=== PATIENT | female | born 1955 | race Caucasian/White ===

== ENCOUNTER 2017-11-09 15:59 | Emergency (ER) | payer MEDICARE, OTHER ==
[~2017-11-09] VITALS: Ht 157.5 cm; Wt 65.8 kg
[2017-11-09] MEDS ORDERED: MIRALAX17 GM PO (16:51)
[2017-11-09] MEDS ORDERED: TRAZODONE HCL100 MG PO (16:54)
[2017-11-09] MEDS ORDERED: DICYCLOMINE HCL10 MG PO (16:58)
[2017-11-09] MEDS ORDERED: ZOFRAN ODT4 MG PO ×2 (16:59→18:51)
== END 2017-11-09 19:10 | disposition home or self-care (01) ==
LOC: ED 15:59
PROC: 0T9B70Z Drainage of Bladder with Drainage Device, Via Natural or Artificial Opening (ICD-10-PCS; principal; 2017-11-09)
DX: K52.9 Noninfective gastroenteritis and colitis, unspecified (principal); Z88.8 Allergy status to other drugs, medicaments and biological substances; Z79.899 Other long term (current) drug therapy
CPT/HCPCS: 51701; 74176; 80053; 81001; 83690; 85025; 96361; 96374; 96375; 99284; J1170; J1885; J2405; J7120

== ENCOUNTER 2017-12-09 07:21 | Emergency (ER) | payer MEDICARE, OTHER ==
[~2017-12-09] VITALS: Ht 160 cm; Wt 63.0 kg
[~2017-12-09 07:21] MED LIST: DICYCLOMINE HCL10 MG PO; MIRALAX17 GM PO; TRAZODONE HCL100 MG PO; ZOFRAN ODT4 MG PO
[2017-12-09] MEDS ORDERED: FUROSEMIDE40 MG PO (07:42)
[2017-12-09] MEDS ORDERED: OMEPRAZOLE20 MG PO (07:43)
[2017-12-09] MEDS ORDERED: SERTRALINE HCL100 MG PO (07:43)
[2017-12-09] MEDS ORDERED: VENTOLIN HFA18 GM INH (07:43)
[2017-12-09] MEDS ORDERED: LOSARTAN POTASS50 MG PO (07:43)
[2017-12-09] MEDS ORDERED: ADVAIR 100-501 EACH INH (07:43)
[2017-12-09] MEDS ORDERED: OXCARBAZEPINE300 MG PO (07:43)
== END 2017-12-09 07:55 | disposition home or self-care (01) ==
LOC: ED 07:21
DX: M25.552 Pain in left hip (principal)

== ENCOUNTER 2018-10-30 13:02 | Inpatient (IN) | payer MEDICARE, OTHER ==
[~2018-10-30] VITALS: Ht 157.5 cm; Wt 71.5 kg
[~2018-10-30 13:02] MED LIST changes: +ADVAIR 100-501 EACH INH; +AMITRIPTYLINE150 MG PO; +AMLODIPINE BESYL5 MG PO; +CALCIUM 1,0001 EACH PO; +COZAAR100 MG PO; +FUROSEMIDE40 MG PO; +HYDROXYZINE PAM50 MG PO; +IBUPROFEN600 MG PO; +IMFINZI120 MG/2.4; +LIPITOR20 MG PO; +LORAZEPAM1 MG PO; +MAGNESIUM400 MG PO; +MAPAP325 MG PO; +MULTI VITAMIN1 EACH PO; +OMEPRAZOLE20 MG PO; +OXCARBAZEPINE300 MG PO; +OXYCODONE HCL5 MG PO; +SERTRALINE HCL100 MG PO; +SYMBICORT 16010.2 GM INH; +VENTOLIN HFA18 GM; +VENTOLIN HFA18 GM INH
--- OUTSIDE RECORDS SUMMARY | 2018-10-30 13:04 | XMS ---
PreManage Notification: MARY MURRY Security Psychologist [employer] Personnel Events No recent Security Events currently on file CRITERIA MET - PDM CARE PROVIDERS Wayne Shultz Internal Medicine: Pulmonary Disease 12/10/2017-Current PHONE: Unknown [facility] Current PHONE: Unknown Grace has no Care Guidelines for this patient. Chele VISIT COUNT (12 MO.) 1 Elissa Ardon TOTAL 4 NOTE: Visits indicate total known visits. ED/UCC VISIT TRACKING (12 MO.) 10/30/2018 13:[address] [facility] TYPE: Emergency COMPLAINT: - [facility] DIAGNOSES: - Neoplasm related pain (acute) (chronic) - Other malaise - Urinary tract infection, site not specified - Unspecified fall, initial encounter - Hypo-osmolality and hyponatremia - Hypomagnesemia - Fracture of unspecified part of neck of right femur, initial encounter for closed fracture - Fall/Right Hip - Other fatigue - Multiple Falls 12/09/2017 07:22 [facility] [place] TYPE: Emergency COMPLAINT: - L HIP PAIN/FALL/MSE TO CLINIC DIAGNOSES: - Pain in left hip 11/09/2017 16:00 [facility] [place] TYPE: Emergency COMPLAINT: - ABD PAIN/FLANK PAIN DIAGNOSES: - Unspecified abdominal pain - Noninfective gastroenteritis and colitis, unspecified - Other fci (current) drug therapy - Allergy status to other drugs, medicaments and biological substances status INPATIENT VISIT TRACKING (12 MO.) 03/28/2018 12:31 [facility] [place] TYPE: Surgical Services DIAGNOSES: - Urinary tract infection, site not specified - Essential (primary) hypertension - Hypomagnesemia - Malignant neoplasm of lower lobe, left bronchus or lung - Neoplasm related pain (acute) (chronic) - Repeated falls - Acute respiratory failure with hypoxia - Unspecified fall, initial encounter - Hypo-osmolality and hyponatremia - Fracture of unspecified part of neck of right femur, initial encounter for closed fracture - Other malaise - Other fatigue - Chronic obstructive pulmonary disease, unspecified [email or web address]
--- NOTE | 2018-10-30 19:10 | NUR ---
PT ARRIVES TO MED SURG FLOOR VIA STRETHCER. PT DROWSY, DOZES OFF WHEN ANSWERING QUESTIONS. ORIENTATION TO ROOM PROVIDED. STARKS CATHETER DRAINING. PORT ACCESSED BY ELOY ARCHER. CONT. PULSE OXIMETER IN PLACE ORDERED, 2L OXYGEN BY NC APPLIED, SATURATIONS WNL. MD IN ROOM. PERSONAL SUPPLIES, CALL LIGHT AND DINNER IN REACH.
--- NOTE | 2018-10-30 19:15 | NUR ---
RECEIVED SHIFT REPORT FROM DAYSHIFT ELOY LANIER AT [facility]. VS BEING TAKEN FROM ALTERATION WORKROOM SUPERVISOR TRAINING AND DEVELOPMENT MANAGER. PT APPEARS DROWSY, CPOX IN PLACE. 2LNC ALSO IN PLACE. O2 SAT AND HR WNL. PT APPEARS COMFORTABLE, DENIES IMMEDIATE NEEDS AT THIS TIME. CALL LIGHT IN REACH.
--- NOTE | 2018-10-30 19:43 | NUR ---
THIS RN ASSISTING WITH PT ADMIT. PT ORIENTED TO ROOM. PT ARRIVED TO FLOOR WITH PORT ALREADY ACCESSED. PORT ASSESSED, DRESSING LOOSE, BRISK BLOOD RETURN NOTED. LABS DRAWN FROM PORT. DRESSING CHANGED PER PROTOCOL. PT DESTATS TO 80% ON ROOM AIR. PT STARTED ON CONTINIOUS PULSE OX, PT PLACED ON 2L O2 BY NC. SCHAFFER AT BEDSIDE FOR ASSESSMENT. BED RAILS UP. CALL LIGHT WITHIN REACH.
--- NOTE | 2018-10-30 19:59 | NUR ---
WITH THE HELP OF ELOY ARCHER WE REPOSITIONED PT IN BED TO HER COMFORT. HELPED HER WITH HER FOOD. PT WILL CALL IF SHE NEEDS ANYTHING ELSE.
--- NOTE | 2018-10-30 20:45 | NUR ---
ASSESSMENT COMPLETE, VSS. CPOX IN PLACE, PT ON 2LNC. PT REPORTS 10/10 PAIN, FACIAL GRIMACING NOTED. SCHEDULED TYLENOL ADMINISTERED, LIDOCAINE PATCH APPLIED. SCHEDULED MEDICATIONS GIVEN (SEE EMAR). PORT DRESSING TO RIGHT INTACT, BLOOD RETURN NOTED. SALINE LOCKED AT THIS TIME. PT A/O TO NAME AND , FORGETFUL REGARDING PLACE AND DATE. WILL MONITOR. PT DENIES ADDITIONAL NEEDS, CALL LIGHT IN REACH.
--- NOTE | 2018-10-30 22:10 | NUR ---
ELOY NICOLE IN ROOM TO COLLECT SCHEDULED BLOOD DRAW, PT HEP LCOKED PER ELOY NICOLE AFTER DRAW.
--- NOTE | 2018-10-30 22:31 | NUR ---
Patient reports 8/10 pain in lower back, states that this pain is normal for her. 5 mg PO oxycodone given for pain. Patient denies further needs at this time. Call light within reach.
--- NOTE | 2018-10-30 23:40 | NUR ---
PT CONTINUES TO REPORT OF PAIN IN BACK. PT REPORTS PAIN IS 5-6/10. FACIAL GRIMACING NOTED WITH CRYING. PT REMAINS DROWSY. O2 SAT 94% ON 2LNC, RR 19. HR 80'S. DISCUSSED PAIN INTERVENTIONS WITH RUBBER TUBING BACKER, PRN 5MG OXYCODONE ADMINISTERED. IV MAINTENANCE FLUIDS INFUSING AT 50 MLS/HR, BLOOD RETURN NOTED WHEN PORT ACCESSED BY THIS RN. WARM BLANKET PROVIDED, LIGHTS OFF PER PT REQUEST. CALL LIGHT IN REACH.
--- NOTE | 2018-10-31 02:50 | NUR ---
VITALS AND I&OS DONE AND CHARTED. GOT PT A HEAT PACK FOR HER BACK. SCRATCHED HER BACK PER HER REQUEST. FRESH ICE WATER GIVEN. BEDSIDE TABLE AND CALL LIGHT WITHIN REACH. PT ASKED FOR PAIN MEDS. I INFORMED HER RN DEEPA .
--- NOTE | 2018-10-31 03:09 | NUR ---
ASSESSMENT COMPLETE, NO NEW CONCERNS. PT A/O TO SELF, PLACE, AND SOMEWHAT TO EVENTS PRIOR TO HOSPITALIZATION. PT STATES, "I THINK I'M STARTING TO REMEMBER HOW I FELL". LOWER BACK ASSESSED BY THIS RN PER PT REQUEST. PT STATES, "CAN YOU FEEL MY BACK, WHERE I FELL?". NO OBVIOUS DEFORMITIES NOTED, WILL MONITOR AND NOTIFY DAYSHIFT RN AT REPORT. PT REPORTS 6-7/10 PAIN IN BACK, WILL ADMINISTER PRN OXYCODONE WHEN ABLE (SEE EMAR). PT VERBALIZES AGREEMENT. LIDOCAINE PATCH FOUND IN BED, DISPOSED OF PER FACILITY POLICY. IV FLUIDS INFUSING PER MD ORDERS, PORT ACCESS WNL. DRESSING INTACT. NO FURTHER NEEDS, CALL LIGHT IN REACH.
--- NOTE | 2018-10-31 03:47 | NUR ---
10 mg prn oxycodone administered for 6-710 pain in pt's lower back. warm blanket provided per pt request. no further needs, call light in reach.
--- NOTE | 2018-10-31 04:48 | NUR ---
PT FORGETFUL AT TIMES, A/O TO SELF, PLACE, AND SOMEWHAT TO EVENTS. KNOWS LIMITATIONS AND USES CALL LIGHT APPROPERIATELY. PAIN CONTROLLED WITH PO OXYCODONE AND LIDOCAINE PATCH. PORT TO RIGHT CHEST ACCESSED, IV FLUIDS INFUSING, BLOOD RETURN NOTED. REGULAR DIET, TOLERATING WELL, NO NAUSEA THIS SHIFT. STARKS CATHETER IN PLACE, VOIDING QS. NO BM THIS SHIFT.
--- NOTE | 2018-10-31 06:08 | NUR ---
PATIENT USED THE CALL LIGHT TO LEFT STAFF NOW SHE WAS NAUSEATED AND GOING TO VOMIT. THIS NURSE GAVE 4MG IV ZOFRAN TO THE PATIENT AND NAUSEA HAS SUBSIDED FOR THE TIME BEING.
--- NOTE | 2018-10-31 06:30 | NUR ---
BLOOD DRAW COMPLETE, NEW CLAVE IN PLACE. IV FLUIDS INFUSING PER MD ORDERS, IV SITE WNL. BREAKFAST ORDERED, NO NEW ORDERS. CALL LIGHT IN REACH.
--- NOTE | 2018-10-31 07:30 | NUR ---
BEDSIDE REPORT RECEIVED FROM ELOY MARTIN. PT RESTING SUPINE, CALL LIGHT AND H2O IN REACH. PT REPORTS INCREASED BACK PAIN AND REQUESTS PRN OPIOD -SEE EMAR. CALL LIGHT AND H2O IN REACH. PT DENIES NUMBNESS,TINGLING OR BURNING TO BILAT LE'S. FAMILY AT BEDSIDE. NO FURHTER CONCERNS OR REQUESTS VOICED.
--- NOTE | 2018-10-31 09:28 | NUR ---
PT RESTING SUPINE IN BED WATCHING TV. PT ASSESSMENT COMPLETED, VSS, AND AM MEDS ADMINISTERED. CALLL LIGHT AND H20 IN REACH. PT REPORTS BACK PAIN BUT STATES IT IS TOLERABLE AND WILL WAIT FOR TYLENOL TO TAKE AFFECT. ICE PACK PROVIDED PER DWIGHT MURILLO ALONG WITH FRESH ICE WATER. PT DENIES FURTHER NEEDS/CONCERNS.
--- NOTE | 2018-10-31 10:00 | NUR ---
PT RESTING IN BED AND IS TEARFUL WITH FACIAL GRIMMACE NOTED. PT REPORTS PERSISTING 7/10 BACK PAIN SO PRN IV OPIOD ADMINISTERED PER HER REQUEST. CALL LIGHT AND H2O IN REACH. PT DENIES FURTHER NEEDS/CONCERNS.
--- NOTE | 2018-10-31 11:22 | NUR ---
PT RESTING IN FOWLERS POSITION IN BED, APPEARS TO BE IN NO ACUTE DISTRESS ADN IS SATTING AT 94% ON 2LPNC. FRESH ICE WATER PROVIDED PER PT REQUEST. NO FURTHER NEEDS/CONCERNS VOICED.
--- NOTE | 2018-10-31 12:16 | NUR ---
PT SITTING UP IN BED, GLOBAL LOGISTICS MANAGER IN TAKING VS. PT NAUSEOUS, USED VOID BAG WHILE I WAS IN RM. SHE APOLOGIZED AND MENTIONED THAT SHE FELT LIKE SHE IS FEVERISH. HAD PRAYER WITH PT AND GAVE HER A P.SHAWL. WILL CONTINUE TO FOLLOW NEEDED
--- NOTE | 2018-10-31 12:26 | NUR ---
BROUGHT IN A SHAMPOO CAP AND WASHED HER HAIR.
--- NOTE | 2018-10-31 13:46 | NUR ---
PT RESTING SUPINE IN BED USING CELL PHONE. PT ASSESSMENT COMPLETED. PT TOLERATED 75% OF LUNCH AND REPORTS PAIN IS NOW TOLERABLE. CALL LIGHT AND H20 IN REACH. PT REQUESTS THAT WALKER BE PLACED NEXT TO BED SO IT WAS. PT AGREES TO USE CALL LIGHT BEFORE GETTING UP FOR SAFETY. NO FURTHER NEEDS/CONCERNS VOICED.
--- NOTE | 2018-10-31 15:01 | NUR ---
CALL LIGHT ANSWERED. PATIENT ASKS FOR AMBULATION. PATIENT RESTING IN BED. PATIENT AMBULATING IN ROOM. PATIENT USES A GATE BELT AND WALKER. ONE PERSON ASSISTING. PATIENT BACKS TO BED.
--- NOTE | 2018-10-31 15:35 | NUR ---
PT RESTING SUPINE IN BED, PT REPORTS PAIN OF 8/10 AND IS TEARFUL AT TIMES. DR ANN IN ROOM DISCUSSING POC WITH PATIENT. PRN PO OPIODS ADMINISTERED. FRESH ICE WATER AND SEPERATE CUP OF ICE PROVIDED TO PT PER HER REQUEST. CALL LIGHT AND H20 IN REACH. PT WATCHING TV AND DENIES FURTHER NEEDS/CONCERNS.
--- NOTE | 2018-10-31 16:42 | NUR ---
CALL LIGHT ANSWERED. PATIENT RESTING IN BED. IN ROOM. PATIENT ASKS FOR PAIN MEDICATION. RN NOTIFIED. CALL LIGHT WITHIN REACH. NO OTHER NEEDS AT THIS TIME
--- NOTE | 2018-10-31 17:26 | NUR ---
PATIENT SITTING UP IN BED. IN ROOM. VITAL SIGNS AND I&O DONE. SETS UP TABLE FOR DINNER. CALL LIGHT WITHIN REACH. NO OTHER NEEDS AT THIS TIME
--- NOTE | 2018-10-31 19:00 | NUR ---
SHIFT REPORT RECEIVED FROM DAYSHIFT ELOY LANIER AT BEDSIDE. PT AWAKE AND RESTING IN BED, 2LNC IN PLACE. O2 SAT 93%, HR 92. IV ABX COMPLETE, PT HEP LOCKED BY YOLANDE LYONS. INTRODUCED SELF TO PT, BOARD UPDATED. CALL LIGHT IN REACH.
--- NOTE | 2018-10-31 19:48 | NUR ---
PT REPORTS 7-8/10 PAIN, 2 5MG PRN OXYCODONES ADMINISTERED. PT ON 2LNC, O2 SAT 94%, HR 90. NO FURTHER NEEDS, CALL LIGHT IN REACH.
--- NOTE | 2018-10-31 21:14 | NUR ---
CHARGE NURSE ROUNDING NOTE:. REPOSITIONED IN BED, O2 BACK TO NARES SHE TAKES IT OFF. COOP WITH VITALS. FRESH ICE WATER AND SODA GIVEN ON REQUEST. FLUIDS AND CALL LIGHT AT BEDSIDE
--- NOTE | 2018-10-31 21:30 | NUR ---
ASSESSMENT COMPLETE. SCHEDULED MEDICATIONS GIVEN (SEE EMAR). VS RECENTLY COLLECTED BY NANCY LYONS. PT ON 2LNC, MACIEL IN PLACE. O2 SAT AND HR WNL. PT VERY EMOTIONAL DURING ASSESSMENT WITH INTERMITTENT CRYING. PT REPORTS 8/10 PAIN, INITIALLY REFUSES LIDOCAINE PATCH. EDUCATION PROVIDED ON PROS OF PATCH, PT AGREES AND STATES, "ONLY IF YOU PROMISE TO COME IN AND CHECK ON IT, OR IT'LL FALL OFF". PRN DILAUDID ADMINISTERED FOR PAIN, PORT HEP LOCKED. PT CONTINUES TO BE VERY EMOTIONAL, THERAPEUTIC OMMUNICATION PROIVIDED REGARDING HOSPITALIZATION AND CURRENT EVENTS. WARM BLANKET PROVIDED. PT STOOD AND STRETCHED LEGS BEFORE RETURNING TO BED, CALL LIGHT IN REACH. PT DENIES ADDITIONAL NEEDS, WILL MONITOR. CALL LIGHT IN REACH.
--- NOTE | 2018-11-01 01:10 | NUR ---
PT RESTING IN BED, EYES CLOSED, RR WNL. PT ON 2LNC, CPOX IN PLACE. O2 SAT 89%, O2 TITRATED TO 2.5LNC. PT RESTING IN BED, DENIES NEEDS, CALL LIGHT IN REACH.
--- NOTE | 2018-11-01 01:15 | NUR ---
WARM BLANKETS GIVEN ON REQUESTS,
--- NOTE | 2018-11-01 02:10 | NUR ---
pt repositioned with help from felipe salmeron per pt request. new heat pack, jello, soda, and fresh water also provided per pt request. pt reports 8/10 pain, pt is drowsy, and forgetful at times. rr 16, o2 sat 95% on 2lnc. discussed pain management options with zinc furnace charger, 5mg prn oxycodone administered. call light in reach.
--- NOTE | 2018-11-01 04:46 | NUR ---
PT RESTING IN BED, EYES OPEN AND IS WATCHING TELEVISION. PT ON 2LNC, CPOX IN PLACE. O2 SAT AND HR WNL, PT APPEARS COMFORTABLE, NO FACIAL GRIMACING OR CRYING NOTED. CALL LIGHT IN REACH.
--- NOTE | 2018-11-01 06:11 | NUR ---
ASSESSMENT COMPLETE. NO NEW CHANGES. PT REPORTS 8/10 PAIN, PRN DILAUDID ADMINISTERED. PT DROWSY, SLOW TO RESPOND AT TIMES. VSS, PT ON 2LNC, DENIES SOB OR CHEST PAIN. BLOOD DRAW COMPLETE. PT RESTING IN BED, FRESH COFFEE AT BEDSIDE PER PT REQUEST. NO FURTHER NEEDS, CALL LIGHT IN REACH.
--- NOTE | 2018-11-01 06:13 | NUR ---
PT HAD DIFFICULTY WITH FALLING ASLEEP AND WITH PAIN CONTROL. PT A/O TO SELF, PLACE, AND EVENTS. FORGETFUL AT TIMES AND IS SLOW TO RESPOND. 2LNC, CPOX IN PLACE. PT EMOTIONAL AT TIMES REGARDING CURRENT HOSPITALIZATION, THERAPEUTIC COMMUNICATION PROVIDED PRN. VSS. REGULAR DIET, TOLERATING WELL. BOWEL TONES ACTIVE. STARKS CATHETER IN PLACE, VOIDING QS. NO BM THIS SHIFT. 1PA WITH FWW, USES CALL LIGHT FREQUENTLY. LIDOCAINE PATCH TO BACK WITH HEAT PACK.
--- NOTE | 2018-11-01 07:30 | NUR ---
REPORT RECEIVED FROM ELOY MARTIN. PT ASSISTED UP TO CHAIR. PT UNABLE TO COMPLETE SENTENCES AT THIS TIME AND UNABLE TO RATE PAIN. O2 AT 97% ON 2L O2 BY NC. HR = 101. PT TEARFUL AT TIMES. PT ASSISTED WITH ORDERING BREAKFAST. PT SMILING AND APPEARS COMFORTABLE AT THIS TIME. CALL LIGHT WITHIN REACH.
--- NOTE | 2018-11-01 07:40 | NUR ---
PATIENT SITTING UP IN CHAIR. PATIENT'S BREAKFAST ORDERED. LINENS CHANGED. CALL LIGHT WITHIN REACH. NO OTHER NEEDS AT THIS TIME
--- NOTE | 2018-11-01 09:07 | NUR ---
MORNING ASSESSMENT AND MEDICATION DUE. THIS RN TO BEDSIDE. PT UP TO CHAIR AND TEARFUL AT THIS TIME. PT STATES "I'M VERY CONFUSED." PT ORIENTED TO PLACE, SELF AND THIS RN. PT UNSURE OF EVENTS, TIME AND SURROUNDINGS. PT REORINTED AND UPDATED ON PLAN OF CARE. PT UNABLE TO RATE PAIN AT THIS TIME, FLACC SCALE SHOWS 5/10 PAIN. SEE MAR FOR MEDICATION GIVEN. PT REMAINS ON 2L O2 BY NC. PT HAVING A LOT OF DIFFICULTY EXPRESSING NEEDS AND COMPLETING SENTENCES, MUCH WORSE THAN PTS BASELINE SEEN BY THIS RN DURING CANCER CLINIC TREATMENTS. PT CONTINUES RESTING IN CHAIR. PT SMILING AT TIMES. CALL LIGHT WITHIN REACH.
--- NOTE | 2018-11-01 09:15 | NUR ---
PATIENT SITTING UP IN CHAIR TAKING BREAKFAST. VITAL SIGNS AND I&O DONE. HIGH BLOOD PRESSURE. PATIENT IS CONFUSED. RN NOTIFIED. CALL LIGHT WITHIN REACH. NO OTHER NEEDS AT THIS TIME
--- NOTE | 2018-11-01 09:30 | NUR ---
MD NOTIFIED OF PTS CHANGED IN STATUS. MD TO ROOM TO ASSESS PT. MANUAL BP TAKEN AND FOUND TO BE 204/104. ORDERS PLACED FOR EKG, CT, LABS AND NEW MEDICATIONS. FAMILY TEARFUL, CHAPALIN CALLED. PT BACK TO BED, EKG DONE. PT TRANSFERED TO CT BY ELOY CASTELLANOS. LAB CALLED AND STATES TO CALL WHEN PT RETURNS FOR LAB DRAW.
--- NOTE | 2018-11-01 10:40 | NUR ---
PT RETURNED FROM CT. LAB CALLED. LABS DRAWN FROM PORT AND 2ND LAB DRAWN FROM PERIPHERAL POINT FOR CULTURE. CHAPALIN TO BEDSIDE. FAMILY CALLED AND STATES THEY WILL BE IN SHORTLY. PT RESTING IN BED. PT NOT RESPONDING WITH WORDS TO QUESTIONS. MD NOTIFIED THAT PT IS NO LONGER USING WORDS. PT APPERS TO BE DRIFTING OFF AT TIMES AND THEN BACK 20-30 MINUTES LATER. MD NOTIFIED. MD TO BEDSIDE. VITALS TAKEN. NEW MEDICATION ORDERS PLACED.
--- NOTE | 2018-11-01 11:13 | NUR ---
RAPID RESPONSE... DUE TO PTS HIGH BLOOD PRESSURE AND NEW MD ORDERS THIS RN WAS IN MED ROOM DRAWING UP LABATOLOL MEDICATION. THIS RN WAS COMING OUT OF MED ROOM ABIODUN CAMPBELL STATES "SOMETHING IS HAPPENING WITH HER." THIS RN IMMIDIATLY TO ROOM. PT NOTED TO BE HAVING A SEIZURE. CODE BUTTON PULLED FOR RAPID RESPONSE. HEAD OF BED RAISED. DR. ANN, RUBI AUGUSTE (RN), YUDITH (ELECTRICIAN UNDERGROUND), OPAL (RESPIRATORY), ELYSE (PHARMACY) AND EVAN (GYN PHYSICIAN) TO BEDSIDE. VITALS TAKEN. SUCTION PROVIDED BY OPAL. ORDERS FOR 2MG IV ATAVAN (GIVEN ORDERED AT 1125). STATES TO HOLD LABATOLOL AT THIS TIME. VITALS CYCLED (SEE VITAL SIGN RECORD). SEIZURE STOPPED AT 1127. PT PLACED ON NON REBREATHER MASK AT 6L O2. KEPPRA, 1500MG ORDERED, PHARMACIST LEFT TO MIX KEPRA DOSE. ORDERS FOR CCU TRANSFER GIVEN. ORDERS FROM DR. ANN TO GIVE LABATOLOL 20ML IVD DOSE (GIVEN AT 1137). PT TRANSFERED TO CCU BY THIS RN AND EMILY GORDONGYN PHYSICIAN. KEPRA BROUGHT TO BEDSIDE BY ELYSE LYONS. DOSE VARIFIED WITH DR. ANN AND STARTED BY THIS RN (MAGNESIUM INFUSION SUSPENDED AT THIS TIME.). PIV STARTED BY ELOY SAMAYOA, FOR 2ND ACCESS POINT. PTS TO BEDSIDE. PTS UPDATED AND LEFT ROOM TO SPEAK WITH ASHLYN WORTHINGTON). REPORT GIVEN TO ELOY SAMAYOA. KEPRA INFUSION COMPLETE. MAGNESIUM INFUSION RESUMED. PT DIAPHORETIC AND DROWSY AT THIS TIME, NOT RESPONDING TO QUESTIONS BUT OPENS EYES ONCE AND GRASPS HANDS OF OTHERS. YUKI SAMAYOA RN, STATES ALL HER QUESTIONS HAVE BEEN ANSWERED.
--- NOTE | 2018-11-01 11:46 | NUR ---
CALLED AMADEO NO ANSWER, CALLED SISTER NAKIA (NEXT OF KIN) AND GAVE UPDATE AND INFORMATION ON PT TRANSFER.
--- NOTE | 2018-11-01 12:02 | NUR ---
PATIENT ARRIVES TO CCU AT 1145 S/P TONIC CLONIC SEIZURE. PATIENT RECEIVING IV KEPPRA. NEW IV PLACED IN RIGHT HAND 22 G. PATIENT HAS PORT ACCESSED. PT NOTED TO STILL BE SEIZING SOME WITH TREMOR-LIKE ACTIVITY IN LEGS. PT IS PROFOUSLY SWEATING. BP UPON ARRIVAL IS 181/115, HR 80s. PT IS NON COHERENT BUT IS MOVING IN A SOMEWHAT PURPOSEFUL WAY. PT'S AMADEO AT BEDSIDE. CONCRETE BATCHER HERE. DR. ANN IN ROOM. PENDING RESULTS FROM THIS AM'S BLOOD DRAW AND CT RESULTS. CONTINUE TO MONITOR CLOSELY.
--- NOTE | 2018-11-01 12:20 | NUR ---
CBG AT THIS TIME 190. PATIENT REMAINS DROWSY - NON RESPONSIVE TO PAIN, BUT NOTED TO HAVE SOME PURPOSEFUL MOVEMENT OF HER HAND TO WIPE HER FACE. RR EVEN, UNLABORED. SP02 89% ON 3 L. HR IN THE 80s, SINUS. LAST BP 161/86. CONTINUE TO MONITOR.
--- NOTE | 2018-11-01 12:35 | NUR ---
OXYGEN TURNED UP TO 5 L SP02 WAS HOVERING ARUOND 88-89%. ATTEMPTED TO HAVE PATIENT COUGH BUT UNABLE TO FOLLOW COMMANDS. PT REPOSITIONED IN BED. STARKS DRAINING CLEAR YELLOW URINE. PT OPENING EYES MORE FREQUENTLY BUT STILL NOT INTERACTIVE.
--- NOTE | 2018-11-01 13:30 | NUR ---
OXYGEN TURNED DOWN TO 2 L AND SP02 MAINTAINING >90%. PT REMAINS POST ICTAL AND OBTUNDED. LAST BP 151/83 (100), HR IN THE 80s. CONTINUE TO MONITOR.
--- NOTE | 2018-11-01 13:33 | NUR ---
I was called in at 10:20 because pt's family requested a Director Orange. When I arrived at 10:50 the family had left and would be returning shortly. The nurse on duty asked me to sit with the pt, hold her hand and visit with her because she was feeling distressed over her current condition of feeling confused and unable to communicated well. After several minutes of visiting the pt's eyes began to shift back and forth and she turned away. I immediately got her nurse who was close by. PT began having a critical incident, and I left the room as the medical staff attended to her. Pt was moved to CCU once stable. When pt's arrived I was asked to meet with him. We met in the CCU waiting room and we visited as he shared his thougths and feeling over his 's condition. We visited for over an hour and I was able to listen and give him some words of comfort. He checked in on his before he left and I escorted him part way out making sure he had a support system to rely on. He works for the [employer] and has good support there. I checked in with nursing staff before I left.
--- NOTE | 2018-11-01 15:01 | EKG ---
[facility] [address] [facility] [address] [place], [place] [address] Signed Sinus tachycardia Right atrial enlargement Borderline ECG When compared with ECG of 12-AUG-2018 06:22, No significant change was found Confirmed by ANTONIA ANN DO ([id number]) on 11/01/2018 3:01:16 PM Electronically Signed By: ANTONIA ANN DO 11/01/18 1501 PATIENT NAME: MARY MURRY Electrocardiogram DATE OF : 51 PHYSICIAN: ANTONIA ANN DO REPORT #: [id number] REPORT IS CONFIDENTIAL AND NOT TO BE RELEASED WITHOUT AUTHORIZATION
--- NOTE | 2018-11-01 15:14 | NUR ---
PATIENT AROUSES TO VOICE NOW AND IS ACTUALLY CONVERSING WITH THIS RN. PT RE-ORIENTED TO SITUATION SHE IS CONFUSED TO EVENT. PT STILL VERY DROWSY, BUT MARKED IMPROVEMENT IN HER MENTAL STATUS. PATINT RECEIVING ANOTHER DOSE OF THE IV KEPPRA A THIS TIME. PT HELPED TO TURN ONTO LEFT SIDE AND POSITIONED WITH PILLOW FOR COMFORT. PT ABLE TO HELP SOME WITH THIS MOVEMENT, BUT OVERALL WEAK. VITALS STABLE. CONTINUE TO MONITOR.
--- NOTE | 2018-11-01 17:01 | NUR ---
PATIENT MORE AWAKE AT THIS TIME AND TEARFUL, ANXIOUS, AND PAINFUL. PATIENT SCARED SAYING, "I'M NOT GOING TO AM I?". PATIENT REASSURED AND REORIENTED TO PLAN OF CARE. PATIENT ASKING FOR HER AMADEO AND HER SISTER. PT GIVEN TYLENOL AND OXYCODONE AT THIS TIME - SEE EMAR. IVF ARE INFUSING AT 50 ML/HR. ASSESSMENT COMPLETE. PATIENT TENSE, AND SEEN TO BE GRIPPING SIDE RAILS UNTIL HER KNUCKLES ARE WHITE. PATIENT WANTING TO TAKE THE OXYGEN OFF, WHICH HER SP02 IS GREATER THAN 90% ON ROOM AIR AT THIS TIME. PATIENT NOT ABLE TO ANSWER QUESTIONS ACCURATELY QUITE YET. PATIENT STATES SHE HAS A HORRIBLE HEADACHE AT THIS TIME. PT MOVING ALL FOUR EXT WITH PURPOSE. PT ABLE TO POSITION SELF IN BED WELL. DR. ANN UPDATED AND HE WAS IN TO SEE PATIENT AGAIN. CONTINUE TO MONITOR CLOSELY.
--- NOTE | 2018-11-01 18:36 | NUR ---
PATIENT WANTING TO SIT UP AT EDGE OF BED. PATIENT HELPED TO DO THIS AND GOWN CHANGED, BACK WIPED DOWN WITH WASH CLOTHES, AND LINEN CHANGED. PATIENT REMAINS SITTING AT EDGE AT THIS TIME. PT STATES HER LEFT BIG TOE IS HURTING A LOT, WHICH IS BRUISED. PT ALSO C/O BACK PAIN AND STATES, "I'M NOT SURE WHEN OR WHEN I FELL AT." PATIENT IS ALSO NOTED TO BE QUITE TENDER IN HER ABDOMEN. PT STILL NOT MAKING COMPLETE SENSE, BUT IS DEFINITELY STARTING TO CLEAR IN HER MENTAL STATUS COMPARED TO EARLIER TODAY. CONTINUE TO MONITOR CLOSELY.
--- NOTE | 2018-11-01 19:33 | NUR ---
Patient is found trying to stand up by herself, is disoriented to self, time, place, and event, assisted patient back to bed. Patient reports 10/10 pain in back, is tearful and anxious. ELOY Oconnell and ELOY Goldberg stay at bedside while this RN grabs PRN IV dilaudid, 0.5 mg IV dilaudid administered. Patient is less anxious with staff at bedside.
--- NOTE | 2018-11-01 19:45 | NUR ---
Shift assessment done, patient remains disoriented self, time, place, and event, follows commands appropriately with frequent prompting, drowsy, PERRL. HR WNL, BP noted to be high with systolic >190. Peripheral pulses well felt in all extremities. Breathing is tachypneic, unlabored, has frequent coughing, productive with thick white sputum, lungs have rhonchi throughout. SpO2 81% on room air, placed patient on NC at 2L O2, patient quickly to 94%. Abdomen is distended, tender to palpation, bowel tones active. Ortiz catheter present, draining QS yellow urine. Patient has bruise to left great toe and buise to coccyx, skin intact. Patient meak in all extremities, difficulty with ambulation, patient encouraged to maintain bedrest. Portacath accessed, dressing WNL, blood return noted. IV site to right hand intact, saline locked. IVF infusing per order.
--- NOTE | 2018-11-01 20:25 | NUR ---
Notified Dr. Elizalde that patient has elevated BP with systolic >190. 20 mg IV labetalol orderd Q4H PRN for sustained systolic >190. Also notified Dr. Elizalde of patient's coarse lung sounds and coughing, as well as tender abdomen. CT of chest, abdomen and pelvis ordered.
--- NOTE | 2018-11-01 20:45 | NUR ---
This RN escorted patient to radiology with engine emission technician for CT. Patient tolerated scan well, vitals remained WNL, no respiratory distress noted.
--- NOTE | 2018-11-01 21:00 | NUR ---
Patient back from CT, reports continued discomfort, with assistance from ELOY Oconnell, repositioned patient, patient states she is now more comfortable. Call light within reach, bed alarm on.
--- NOTE | 2018-11-01 21:20 | NUR ---
Patient is restful with eyes closed, breathing is even and unlabored, vitals WNL. Call light within reach.
--- NOTE | 2018-11-01 22:00 | NUR ---
Patient is restful with eyes closed, breathing is even and unlabored, vitals WNL. FLACC score 0, call light within reach.
--- NOTE | 2018-11-01 23:10 | NUR ---
Patient continues to rest with eyes closed, vitals WNL. Call light within reach.
--- NOTE | 2018-11-02 00:10 | NUR ---
Continues to rest with eyes closed, no changes from previous. Call light within reach.
--- NOTE | 2018-11-02 00:55 | NUR ---
Patient is restful with eyes closed, breathing is even and unlabored, vitals WNL. Assessment done, patient is able to state her name and and birthday, disoriented to time, place, and situation, frequently drowsy, opens eyes to voice, follows commands appropriately. PERRL, patient is weak in all extremities, equal in strength bilaterally. GCS 14. Lung sounds remain coarse throughout, SpO2 94% on 2L O2, no respiratory distress, RR 16. No acute changes from previous assessment, deluna continues to drain QS yellow urine, IVf infusing per order, portacath site WNL. Call light within reach.
--- NOTE | 2018-11-02 02:00 | NUR ---
Patient is restful with eyes closed, breathing is even and unlabored, vitals WNL. Call light within reach.
--- NOTE | 2018-11-02 04:10 | NUR ---
Patient is awake and sitting up in bed watching tv. Assessment done, patient is alert, disoriented to event only, alert to self, time, and place. Lungs are also no clear with occasional coarse lung sounds, clear with cough, SpO2 95% on 2L O2. Denies needs at this time, no other changes in assessment. Call light within reach.
--- NOTE | 2018-11-02 05:05 | NUR ---
Patient reports "severe" pain in back, 10mg PO PRN oxycodone given. Denies further needs at this time. Call light within reach.
--- NOTE | 2018-11-02 06:00 | NUR ---
Patient is tearful and anxious, reports continued pain in back. Attempted to transfer to chair with assistance from ELOY Herbert, patient has notable weakness with activity, not able to pivot to chair with 2PA, patient resting in bed again, repositioned for comfort. Vitals remain WNL, call light within reach.
--- NOTE | 2018-11-02 06:32 | NUR ---
Patient continues to report 10/10 pain in back, 0.5 mg IV dilaudid given, also administered 4mg IV zofran for nausea and 0.5mg PO ativan for being anxious and tearful.
--- NOTE | 2018-11-02 08:09 | NUR ---
PATIENT VERY TEARFUL THIS AM, PRAYING TO GOD FOR HER SISTER'S SAKE. PATIENT NEEDING LOTS OF REASSURANCE. ASSESSMENT COMPLETE. CRACKLES AUSCULTATED IN LOWER LUNG COLEMAN. PT REQUIRING 2 L OXYMASK TO KEEP SP02 >90%. STARKS DRAINING CLEAR YELLOW URINE. BREAKFAST ORDERED FOR PATIENT. RT IN ROOM TO PROVIDE BREATHING TREATMENT. IVF CONTINUE AT 50 ML/HR.
--- NOTE | 2018-11-02 09:38 | NUR ---
PATIENT MOVED TO CHAIR AROUND 0900 WITH A 2 PERSON ASSIST. PT'S IN ROOM. PT VERY SLOW TO MOVE AND VERY PAINFUL. ONCE SITTING IN CHAIR, PATIENT AND DISCUSSING HER SISTER. PATIENT WAS ABOUT TO TAKE HER AM MEDICATIONS, BUT STARTED TO HAVE A BLANK STARE AND STOPPED TALKING IMMEDIATELY. PT STARTED TO SEIZE AGAIN. PT UNABLE TO ANSWER QUESTIONS. DR. ANN IN ROOM AND 3 PERSON ASSIST PATIENT BACK TO BED. 2 MG IV ATIVAN GIVEN INITIALLY, FOLLOWED BY AN ADDITIONAL 2 MG IV ATIVAN. IV KEPPRA ALSO BEING GIVEN. PO MEDS HELD. PT NOTED TO BE TWITCHING AND TREMULOUS, WELL DIAPHROETIC AGAIN. BP ELEVATED. HR ELEVATED. PT STILL TRACKING SOME AFTER THE FIRST DOSE OF ATIVAN BUT STILL NOT COHERENT SHE WAS EARLIER TODAY. PT STATES, "I'M CONFUSED, WHAT IS HAPPENING?"
--- NOTE | 2018-11-02 09:41 | NUR ---
PT CONVERSING MINIMALLY WITH THE DOCTOR AT THIS TIME. PT REMAISN IN BED. IV KEPPRA INFUSING. CONTINUIE TO MONITOR.
--- NOTE | 2018-11-02 10:45 | NUR ---
PATIENT RESTING ON HER LEFT SIDE AT THIS TIME. SP02 IS 94% ON 2 L OXYMASK, HR 90s, SINUS RHYTHM. LAST BP 160/91. PT NOTED TO MOVE ALL EXT X 4. CONTINUE TO MONITOR.
--- NOTE | 2018-11-02 11:06 | NUR ---
PATIENT RESTING IN BED, SLEEPING AT THIS TIME. CONTINUE TO MONITOR.
--- NOTE | 2018-11-02 12:47 | NUR ---
PATIENT MUCH MORE AWAKE, ALERT, AND RESPONSIVE AT THIS TIME. PATIENT STATES, "OH MY HEADACHE IS FINALLY GONE." THIS IS THE FIRST TIME PATIENT HAS STATES HER HEADACHE HAS IMPROVED. PT IS TRACKING BETTER WELL. PT'S EYEGLASS FITTER HERE TO VISIT WITH PATIENT. PATIENT GIVEN HER NORMAL AM MEDICATIONS AND TOLERATED THEM WELL. PT IS C/O LOWER ABDOMINAL PAIN. OF NOTE, PATIENT HAS NOT HAD A BOWEL MOVEMENT IN SEVERAL DAYS. PT ABLE TO TAKE STOOL SOFTENERS AND IS DRINKING MIRALAX. PT NEEDING 2 L OF OXYGEN TO MAINTAIN SP02 >90% HOWEVER. ASSESSMENT COMPLETE. CONTINUE TO MONITOR.
--- NOTE | 2018-11-02 12:56 | NUR ---
Medications reconciled using pharmacy records, prescription bottles and interview with . Possible prescription transmission on oxcarbazine may have lead to double dosing medication since 09/25/18. Talked to Jeremiah but will have to follow up with Dr Shultz Saturday
--- NOTE | 2018-11-02 13:51 | NUR ---
PATIENT JUST RECEIVED NEB TX. PATIENT REMAINS ON OXY MASK. NO SEIZURE ACTIVITY AT THIS TIME. PT HAS REMAINED ALERT AND TALKATIVE. CONTINUE TO MONITOR.
--- NOTE | 2018-11-02 15:43 | NUR ---
PATIENT GIVEN BED BATH AT THIS TIME. PATIENT REMAINS MORE CONVERSIVE AT THIS TIME. NO SEIZURE ACTIVITY NOTED.
--- NOTE | 2018-11-02 19:30 | NUR ---
Patient sitting on bedside commode, was able to have medium amount of firm brown stool. 1PA/FWW, patient able to pivot back to bed. gait is unsteady and weak, requires prompting to move legs. Now back in bed, breathing is unlabored, tachypnea noted with RR 24, SpO2 93% on 2L O2 via NC. Denies further needs at this time. Call light within reach.
--- NOTE | 2018-11-02 20:00 | NUR ---
Patient assessment done, patient is alert, oriented to self, and place, disoriented to events and unable to recall the current month. Follows commands appropriately, PERRL, 5/5 strength in all extremities, no seizure-like activity noted. HR and BP WNL, remains in sinus rhythm, peripheral pulses well felt in all extremities. Lung sounds are coarse in RLL, clear in RUL, diminished on left side, occasional tachypnea with activity, continues to have productive cough with thim white sputum, less than previous. Abdomen remains tender to palpation, bowel tones active, denies nausea. Ortiz catheter present, yellow urine, QS. Bruise to coccyx and left great toe noted, skin grossly intact. Patient is weak, 1PA/FWW pivot transfer from bed to chair/commode. Port-a-cath remains intact, blood return noted, dressing intact. IVF infusing per order.
--- NOTE | 2018-11-02 20:45 | NUR ---
Scheduled medications given, patient able to swallow pills easily, patient states "I am just ready to go to bed now, I am very tired." Dr. Elizalde comes to bedside to check on patient.
--- NOTE | 2018-11-02 22:00 | NUR ---
Patient restful with eyes closed, vitals WNL, FLACC score 0. Call light within reach, IVF infusing per order.
--- NOTE | 2018-11-02 23:10 | NUR ---
Remains restful, vitals WNL, FLACC score 0. Call light within reach.
--- NOTE | 2018-11-03 00:30 | NUR ---
Assessment done, no acute changes from prevous, neuro status remains unchanged, no seizure activity noted. Lungs are clear in RUL, diminished in all other smith, remains on 2L O2 via oxymask. Patient appears comfortable, FLACC score 0, vitals remain WNL, breathing is even and unlabored. Port-a-cath WNL, blood return still noted, IVF infusing per order. Patient denies needs at this time. Call light within reach.
--- NOTE | 2018-11-03 01:25 | NUR ---
Patient reports 7/10 pain in back, 0.5mg IV PRN dilaudid and 5mg PO PRN oxycodone given by supervisor photoengraving Chrissy.
--- NOTE | 2018-11-03 02:00 | NUR ---
Patient resting again after pain medication administration, FLACC score 0, vitals remain WNL. Call light within reach.
--- NOTE | 2018-11-03 03:12 | NUR ---
Patient is awake and restless, reports 7/10 pain in back, 0.5mg IV PRN dilaudid given and also provided warm back for lower back. Patient denies further needs at this time. Patient is able to reposition self in bed, she is now laying on side. Call light within reach.
--- NOTE | 2018-11-03 04:21 | NUR ---
Appears to be asleep, breathing is even and unlabored, vitals WNL, FLACC score 0. Call light within reach.
--- NOTE | 2018-11-03 05:00 | NUR ---
Assessment done, no acute changes in neuro status, has crackles in LLL of lung, dim throughout rest of lung smith, no SOB, remains on 2L O2. No changes in rest of assessment. FLACC score 0, call light within reach, IVF infusing per order.
--- NOTE | 2018-11-03 06:00 | NUR ---
Assisted patient to BSC with 1PA/FWW, tolerated well, strength improved from previous time getting up to BSC. Had small smear of soft brown stool, now back in bed, was SBA back to bed. Medicated with PRN pain meds for pain in back. Denies further needs. CAll light within reach.
--- NOTE | 2018-11-03 08:13 | NUR ---
PATIENT AWAKE, ALERT, AND VISITING WITH HER AT THIS TIME.
--- NOTE | 2018-11-03 09:08 | NUR ---
PATIENT UP TO BEDSIDE CHAIR TO EAT BREAKFAST. PT VERY TALKATIVE THIS AM, AND IS TRACKING WELL. PT'S REMAINS IN ROOM. DR. ANN IN TO SEE KASSIDY. ORDER REC'D TO D/C STARKS CATHETER. PATIENT NEEDING 2 L OF OXYGEN TO KEEP SP02 >90%. LUNG SOUNDS REVEAL FINE CRACKLES BILATERALLY IN LOWER BASES. PT STATES SHE DOES NOT HAVE A HEADACHE AT THIS TIME AND HER PAIN IS FAIRLY WELL CONTROLLED, AT A 5/10 CURRENTLY. PT ABLE TO TAKE HER AM MEDS WITHOUT DIFFICULTY. PATIENT EDUCATION GIVEN REGARDING HOME MEDS.
--- NOTE | 2018-11-03 10:25 | NUR ---
TALKED WITH PT, SHE IS WISHING TO GO TO [facility] BECAUSE SHE KEEPS FALLING AND IS NOT BEING STRONG ENOUGH TO CARE FOR HERSELF. I TOLD HER I WOULD TALK TO [facility] AND FAX CHART NOTES.
[2018-11-03] MEDS ORDERED: OXTELLAR XR300 MG PO (11:29)
--- NOTE | 2018-11-03 11:29 | NUR ---
PT SITTING IN CHAIR, JUST FINISHED BREAKFAST. PT SEEMED PLEASED I STOPPED BY, INVITED ME TO SIT DOWN, AND BEGAN TO EXPLAIN TO ME HER WEEKEND EVENTS. SOME OF THE TIMING IS OFF, AND SHE KNEW IT. THANKFUL FOR A DISCOVERY REGARDING SEIZURE MEDICATION THAT SHE STATED THE SHEET CUTTER DISCOVERED. 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 PT REQUESTED PRAYER, WILL FOLLOW NEEDED
--- NOTE | 2018-11-03 12:16 | NUR ---
PATIENT TO BE TRANSFERRED TO MED/SURG. PATIENT IS A 1 PERSON STAND BY ASSIST AT THIS TIME. PT ABLE TO TAKE PILLS WITHOUT DIFFICULTY. PT EATING LUNCH AT THE MOMENT. CONTINUE TO MONITOR.
--- NOTE | 2018-11-03 12:40 | NUR ---
CHART NOTES INCLUDING FACE SHEET, ER NOTES AND SUMMARY, H AND P, PROG NOTES, PT EVAL AND NOTES FAXED TO [facility], TALKED WITH DEMI FROM [facility] WHO AGREES TO REVIEW CHART NOTES. RECIEVED FAX CONFIRMATION.
--- NOTE | 2018-11-03 12:52 | NUR ---
REPORT GIVEN TO ELOY ARCHER ON MED SURG. PT TRANSFERRED TO ROOM 124 AT 1250 IN HER CHAIR. ALL BELONGINGS TAKEN WITH PATIENT, INCLUDING HER HOME MEDICATIONS.
--- NOTE | 2018-11-03 13:00 | NUR ---
PT ARRIVED FROM CCU BY CHAIR. PT REPORTS 6/10 PAIN (SEE MAR FOR MEDICATIONS GIVEN). PORT HEPARIN LOCKED, WNL. ASSESSMENT DONE. PT OREINTED TO ALL AT THIS TIME. PT VERY TALKITIVE. FRESH ICE WATER PROVIDED. PT RESTING IN CHAIR. NO REQEUSTS OR COMPLAINTS AT THIS TIME. CALL LIGHT WITHIN REACH.
--- NOTE | 2018-11-03 13:20 | NUR ---
PT CALL LIGHT ON. PT REQUESTS ASSISTANCE UP TO RESTROOM. 1PA, FWW UP TO RESTROOM. PT TALKING TO HERSELF. PT REPROTS DIZZINESS WITH AMBULATION. PT BACK TO BED "FOR A NAP." BED RAILS UP. CALL LIGHT WITHIN REACH. BED ALARM ON.
--- NOTE | 2018-11-03 13:56 | NUR ---
SEIZURE MEDICAITON PLACED. PT EDUCATION DONE REGARDING SEIZURE MEDICAITON AND SEIZURE PADS. PT VERBALIZES UNDERSTANDING. CALL LIGHT WITHIN REACH.
--- NOTE | 2018-11-03 14:49 | NUR ---
THIS RN TO ROOM TO CHECK ON PT. PT REPORTS 4/10 PAIN THAT IS TOLERABLE. SCHEDULED TYELNOL GIVEN. FRESH ICE WATER AND TEA PROVIDED. SHOWER OFFERED. PT REQUESTS TO TAKE SHOWER LATER TODAY AFTER FAMILY BRINGS HER CLOTHES. NO ADDITIONAL REQUESTS OR COMPLAINTS AT THIS TIME. CALL LIGHT WITHIN REACH. SEZURE PADS IN PLACE.
--- NOTE | 2018-11-03 15:40 | NUR ---
PATIENT UP TO BATHROOM, 1 PERSON STBY ASSIST WITH WALKER. STBY WHILE IN BATHROOM. BACK TO BED PLACED SEIZURE PAD. PROVIDED WITH PERSONAL BELONGINGS AT BEDSIDE, AND CALL LIGHT WITHIN REACH. PATIENT STATES " I ONLY HURT WHEN I MOVE WRONG AND I GET SHOOTING PAINS IN MY LOW BACK". DENIES ANY NEED FOR PAIN MEDICATION AT THIS TIME.
--- NOTE | 2018-11-03 16:24 | NUR ---
PT CALL LIGHT ON. PT TEARFUL AND REPORTING 8/10 PAIN IN BACK. SEE MAR FOR MEDICATION GIVEN. ASSESSMENT DONE. CORSE SOUNDS HEARD IN LOWER LOBES OF LUNGS. PT TOLERAING ROOM AIR WITH O2 SATURATIONS ABOVE 90% ON ROOM AIR. PT DEMONSTRATES USE OF I.S. REACHING 1900ML. PT REATING IN BED AND REPORTS PAIN HAS DECREASED TO 6/10. BED RAILS UP. CALL LIGHT WITHIN REACH.
--- NOTE | 2018-11-03 19:08 | NUR ---
MEDICATIONS DUE. THIS RN TO BEDSIDE. PT REPORTS 01/10 PAIN AND REQUESTS DILAUDID. SEE MAR FOR MEDICATION GIVEN. VITALS TAKEN. PT RESTING IN BED. SEIZURE PADS IN PLACE. CALL LIGHT WITHIN REACH.
--- NOTE | 2018-11-03 19:30 | NUR ---
SHIFT REPORT RECEIVED. PATIENT REQUEST ASSISTANCE TO THE BATHROOM. COSTUME MAKER IN ROOM.
--- NOTE | 2018-11-03 19:43 | NUR ---
PT TRANSISTIONED FROM CCU THIS SHIFT. NO SEZURES NOTED THIS SHIFT. EDUCATION R/T SEIZURE MEDICATION DONE REPEADLY. TEREZA MCCRAY'Janet. PT RECEIVING IV ABX FOR UTI. PRN PAIN MEDICATION GIVEN FOR 01/10 PAIN R/T COMPRESSION FX. PORT ACCESSED ADN HEPARIN LOCKED FOR MOST OF SHIFT.1PA, FWW. PT UNSTEADY ON FEET. PT USES CALL LIGHT APPROPRIATLY.
--- NOTE | 2018-11-03 20:26 | NUR ---
ASSISTED PATIENT FROM BATHROOM TO CHAIR. PATIENT STATED SHE WILL WAIT IN THE MORNING FOR SHOWER BECAUSE ACCORDING TO HER SHE WILL BE GOING TO A FACILITY FOR REHABILITATION. RT WAS WITH PATIENT.
--- NOTE | 2018-11-03 20:46 | NUR ---
SCHEDULED MEDS PROVIDED. PATIENT RESTING IN BED. PAIN 5/10, PATIENT STATES "I'D LIKE TO HAVE SOMETHING WHEN I CAN HAVE SOMETHING FOR PAIN, BUT I'M OKAY RIGHT NOW." REFUSED LIDODREM PATCH, STATES IT DOES NOT WORK AND IS UNCOMFORTABLE. PATIENT'S IV ABX INFUSING FINISHED, PORT FLUSHED. RETUNED BLOOD, HEPARIN LOCKED. PATIENT'S ALERT AND ORIENTED. IN PLESANT MOOD AND TALKATIVE. PATIENT DENIES ANY NEEDS. CALL LIGHT IN REACH.
--- NOTE | 2018-11-03 22:40 | NUR ---
PT COMPLAINED OF 7/10 BACK PAIN, TOOK DOWN HER PO PAIN MEDICATION, SHE REFUSED STATED SHE NEEDED DILAUDID. HAD REQUESTED NAUSEA MEDICATION, STATED THAT SHE WHEN SHE WALKED BACK FROM THE BATHROOM, SHE FELT NAUSEA. NO VOMITING. DID MED WITH ZOFRAN. CALL LIGHT WITHIN REACH. PT EMJOYS VISITING, TENDING TO REPEAT HER STORY. NO OTHER NEEDS AT THIS TIME.
--- NOTE | 2018-11-04 00:26 | NUR ---
ASSISTED TO THE BATHROOM AND BACK TO BED. ICE WATER AND REGULAR [place] SODA PROVIDED PER PATIENT'S REQUEST.
--- NOTE | 2018-11-04 01:15 | NUR ---
PATIENT UP TO THE BATHROOM. REPORTS PAIN TO DWIGHT RAMIRES, WHO REPORTED IT TO THIS RN. PO PAIN MEDS PROVIDED. PATIENT REQUESTING "THE OTHER PAIN MED" AND IS UNABLE TO THINK OF THE NAME OF THE DILAUDID FOR SEVERAL MINS. PATIENT APPEARS TO HAVE UNCLEAR THINKING AND WORD SEARCHING. DISCUSSED PLAN FOR PAIN MANAGEMENT ONCE PATIENT DISCHARGES. PATIENT AWARE SHE CANNOT DISCHAGE WITH IV PAIN MEDICATION. PATIENT AGREEABLE TO USING PO PAIN MEDS. DECLINED LIDODERM PATCH. PAIN IS FOCUSED IN LOWER BACK. ASSISTED PATIENT TO REPOSITION. PATIENT REPORTS BEING COMFORTABLE. CALL LIGHT IN REACH.
--- NOTE | 2018-11-04 03:16 | NUR ---
PATIENT WENT TO THE BATHROOM WITH THIS ROLLED OATS MILL OPERATOR. PATIENT IS BACK SITTING BY THE BED. CALL LIGHT AND TABLE IN REACH.
--- NOTE | 2018-11-04 03:45 | NUR ---
PATIENT REQUESTING DILAUDID. INFORMED PATIENT THAT PO PAIN MEDS WOULD BE AVAILABLE IN 45MINS. OFFERED PATIENT LIDODERM PATCH, PATIENT DECLINED. WARM PACK PROVIDED. PATIENT POSITIONED IN BED FOR COMFORT. PATIENT STATES "OH, THAT FEELS MUCH BETTER". ENCOURAGED PATIENT TO REST. PATIENT APPEARS COMFORTABLE.
--- NOTE | 2018-11-04 04:32 | NUR ---
PATIENT APPEARS TO BE SLEEPING. RR 20. CALL LIGHT IN REACH.
--- NOTE | 2018-11-04 05:30 | NUR ---
PATIENT REPORTING 10/10 PAIN. SITTING UP ON EDGE OF BED. APPEARS DROWSEY AND DOES NOT APPEAR TO BE IN DISTRESS. PRN OXY PROVIDED. LDR RN IN ROOM TO ASSIST PATIENT WITH MORNING CARE. PATIENT RETURNED TO BED. WARM PACK IN PLACE. PATIENT IN GOOD SPIRITS TELLING STORIES. STATES SHE WOULD LIKE TO WAIT ON SHOWERING UNTIL LATER.
--- NOTE | 2018-11-04 06:52 | NUR ---
PATIENT SLEPT ON AND OFF THROUGHOUT THE NIGHT. MORE PAINFUL WHEN MOVING AROUND. REFUSED LIDODERM PATCH. PATIENT RECEIVING PO PAIN MEDS, EDUCATION ON PAIN MANAGEMENT UPON DISCHARGE. WARM PACK PROVIDED SOME RELIEF. SBA W/FWW. VS STABLE, BP ELEAVTED BUT BELOW PARAMETERS FOR PRN MEDS. PLAN FOR DISCHARGE TODAY. PATIENT'S PORT HEP-LOCKED.
--- NOTE | 2018-11-04 07:10 | NUR ---
REPORT RECEIVED FROM ELOY BLAS. PT UP TO CHAIR. PT REPORTS GETTING UP ON HER OWN. FALL PRECAUTIONS REVIEWED WITH PT. PT VERBALIZES UNDERSTANDING AND DEMONSTRATES USE OF CALL LIGHT. PT STATES SHE DOES NOT WANT TO GO TO [place] TODAY BECAUSE "I JUST HAVE BAD MEMORIES OF THAT PLACE." PT TEARFUL. TREMORSE NOTED. PT ASSISTED UP TO RESTROOM. CALL LIGHT WITHIN REACH.
--- NOTE | 2018-11-04 09:35 | NUR ---
MORNING ASSESSMENT DUE. PT CRYING. PT STATES SHE IS "WORRIED ABOUT EVERYTHING." THERAPUTIC COMMUNICATION DONE. BREATHING EXERCISES TAUGHT TO PT. PT DEMONSTRATES UNDERSTANDING. I.S. USED. PT REACHES 2000ML. ASSESSMENT DONE. CRACKELS NOTED IN LOWER LOBES OF LUNGS. MEDICATIONS GIVEN. VITALS TAKEN. PT EXPRESSES CONCERN ABOUT GOING TO [place] BECAUSE "EVERYONE NEEDS ME AT HOME." [facility] CONTACTED. PT NOW SMILING. NO ADDITIONAL REQUESTS OR COMPLAINTS. CALL [facility] WITHIN REACH.
--- NOTE | 2018-11-04 10:50 | NUR ---
THIS RN TO ROOM TO CHECK ON PT. PT DISCUSSING SHOWER WITH DWIGHT CRUM. PT AGREEABLE TO SHOWER. ALCHOL CAPS PRESENT ON PORT. DRESSING INTACT, EDGES REINFORCED. PT RERPOTS 6/10 PAIN THAT IS IMPROVING. NO ADDITIONAL REQUESTS OR COMPLAINTS AT THIS TIME.
[2018-11-04] MEDS ORDERED: AMLODIPINE BESY10 MG PO (11:40)
[2018-11-04] MEDS ORDERED: CARVEDILOL6.25 MG PO (11:40)
[2018-11-04] MEDS ORDERED: OXYCODONE HCL5 MG PO (11:42)
[2018-11-04] MEDS ORDERED: LORAZEPAM1 MG PO (11:42)
[2018-11-04] MEDS ORDERED: PROMETHAZINE HC25 M1 PO (11:45)
[2018-11-04] MEDS ORDERED: LIDOCAINE1 EACH TD (11:46)
--- NOTE | 2018-11-04 11:47 | NUR ---
MD TO BEDSIDE FOR ROUNDS. PT REPORTING NAUSEA. SEE MAR FOR MEDICATION GIVE. PT FINISHED WITH SHOWER. PT RESTING IN BED. PORT REHEPARIN LOCKED AT THIS TIME. PT ANTICIPATING DISCHRAGE TO [place]. NO ADDITIONAL REQUESTS OR COMPLAINTS AT THIS TIME. CALL LIGHT WITHIN REACH.
--- NOTE | 2018-11-04 11:56 | NUR ---
PATIENT UP TO SHOWER CHAIR AND BACK TO BED, 1PA FWW. PATIENT MOSTLY INDEPENDENT IN SHOWER. CALL LIGHT IN REACH. NO FURTHER NEEDS AT THIS TIME.
--- NOTE | 2018-11-04 12:45 | NUR ---
FAXED ORDERS, PASRR AND RX TO [facility]. AWAITING APPROVAL OF THE ORDERS, RECIEVED FAX CONFIRMATION OF THIS.
--- NOTE | 2018-11-04 13:13 | NUR ---
PT READY FOR DISCHRAGE. DISCHARGE PLAN REVIEWED WITH PT. PT VERBALIZES UNDERSTANDING AND STATES HER QUSTIONS HAVE BEEN ANSWERED. PT REPORTS 6/10 PAIN. SEE MAR FOR MEDICATION GIVEN (ONE TIME DOES PRIOR TO DISCRHAGE GIVEN). VITALS TAKEN. PORT ALREADY HEPARIN LOCKED. PORT DEACCESSED PERPROTOCOL. TAPE AND GAUZE APPLIED. PT DRESSED AND READY TO BE DISCHARGED. AWAITING TRANSPORT PERSONELLE. PT VISITING WITH FAMILY. CALL LIGHT WITHIN REACH.
--- NOTE | 2018-11-04 13:42 | NUR ---
REPORT CALLED TO ELOY FLORES WHO STATES HER QUESTIONS HAVE BEEN ANSWERED.
--- NOTE | 2018-11-04 13:55 | NUR ---
TRANSPORT PERSONELL ARRIVED. PT TRANSFERED TO WHEELCHAIR. NO ADDITIONAL REQUESTS OR COMPLAINTS.
--- NOTE | 2018-11-04 14:39 | NUR ---
PT RATHER DISCOURAGED THAT HER NEXT STOP IS [facility]. I ENCOURAGED HER TO VIEW IT A TOOL TO GET TO WHERE SHE WANTS TO BE. PT WAS BOUNCING FROM ONE SUBJECT TO ANOTHER AND WOULD SEVERAL TIMES FORGET AND START ANEW WITH SOME TOPIC ENTIRELY DIFFERENT. PT REQUESTED PRAYER, WILL FOLLOW NEEDED
[2018-11-05] MEDS ORDERED: KEPPRA500 MG PO (20:16)
== END 2018-11-04 14:00 | disposition home or self-care (01) | DRG 640 ==
LOC: ED 13:02 → MS 18:42 → CCU 11-01 11:45 → MS 11-03 12:50
PROVIDERS: ADMIT Student in an Organized Health Care Education/Training Program
DX: E87.1 Hypo-osmolality and hyponatremia (principal); G93.41 Metabolic encephalopathy; S32.029A Unspecified fracture of second lumbar vertebra, initial encounter for closed fracture; C34.90 Malignant neoplasm of unspecified part of unspecified bronchus or lung; N39.0 Urinary tract infection, site not specified; F11.20 Opioid dependence, uncomplicated; F13.20 Sedative, hypnotic or anxiolytic dependence, uncomplicated; G40.909 Epilepsy, unspecified, not intractable, without status epilepticus; G89.4 Chronic pain syndrome; B96.20 Unspecified Escherichia coli [E. coli] as the cause of diseases classified elsewhere; I10 Essential (primary) hypertension; J44.9 Chronic obstructive pulmonary disease, unspecified; F39 Unspecified mood [affective] disorder; K21.9 Gastro-esophageal reflux disease without esophagitis; E78.5 Hyperlipidemia, unspecified; W10.9XXA Fall (on) (from) unspecified stairs and steps, initial encounter; Z87.891 Personal history of nicotine dependence; Z88.0 Allergy status to penicillin; Z88.8 Allergy status to other drugs, medicaments and biological substances; Z79.899 Other long term (current) drug therapy; Z79.51 Long term (current) use of inhaled steroids
CPT/HCPCS: 51702; 70450; 71045; 71250; 72100; 74176; 80048; 80053; 80076; 81001; 82140; 82803; 82977; 83615; 83735; 83880; 83935; 84100; 84295; 84300; 84484; 85025; 87077; 87088; 87186; 93005; 93010; 94640; 94762; 97163; 99285-25; J0696; J1170; J1650; J1953; J2060; J2405; J3475; J7030; J7040; J7060; J7120

== ENCOUNTER 2018-11-05 16:55 | Emergency (ER) | payer MEDICARE, OTHER ==
[~2018-11-05] VITALS: Ht 157.5 cm; Wt 71.5 kg
[~2018-11-05 16:55] MED LIST changes: +AMLODIPINE BESY10 MG PO; +CARVEDILOL6.25 MG PO; +LIDOCAINE1 EACH TD; +OXTELLAR XR300 MG PO; +PROMETHAZINE HC25 M1 PO
--- OUTSIDE RECORDS SUMMARY | 2018-11-05 16:58 | XMS ---
PreManage Notification: MARY MURRY Security Supervisor Laundry Events No recent Security Events currently on file CRITERIA MET - [facility] - Has Care Guidelines - PDMP - [facility] - 2 Visits in 30 Days CARE PROVIDERS Wayne Shultz Internal Medicine: Pulmonary Disease 12/10/2017-Current PHONE: Unknown ALFREDO BAYAMON Primary Care Current PHONE: Unknown Grace has no Care Guidelines for this patient. Care History Medical/Surgical 10/31/2018 [facility] - Patient is currently established with [facility]. If patient is seen in the ED during business hours. Please contact CHWs at [facility]. Care Recommendation: This patient has had 5 or more Emergency Department visits in the last 12 months.\T\nbsp; Patient requires education on the scope and purpose of the ED as an acute care provider not a Primary Care Provider and should not be utilized for chronic conditions.\T\nbsp; These are guidelines and the provider should exercise clinical judgment when providing care. E.D. VISIT COUNT (12 MO.) 1 [facility] 4 [facility] Ardon TOTAL 5 NOTE: Visits indicate total known visits. ED/UCC VISIT TRACKING (12 MO.) 11/05/2018 16:55 [facility] [place] TYPE: Emergency COMPLAINT: - POSS SIEZURE 10/30/2018 13:03 [facility] [place] TYPE: Emergency COMPLAINT: - BACK PAIN/FALL 03/28/2018 12:31 [facility] Sadia [facility] TYPE: Emergency DIAGNOSES: - Neoplasm related [...] Pain in left hip 11/09/2017 16:00 [facility] TYPE: Emergency COMPLAINT: - ABD PAIN/FLANK PAIN DIAGNOSES: - Unspecified abdominal pain - Noninfective gastroenteritis and colitis, unspecified - Other termite helper (current) drug therapy - Allergy status to other drugs, medicaments and biological substances status INPATIENT VISIT TRACKING (12 MO.) 10/30/2018 18:42 [facility] [place] TYPE: Medical Surgical COMPLAINT: - HYPONATREMIA DIAGNOSES: - Chronic obstructive pulmonary disease, unspecified - Epilepsy, unspecified, not intractable, without status epilepticus - Allergy status to penicillin - Hyperlipidemia, unspecified - Personal history of nicotine dependence - Urinary tract infection, site not specified - termite helper (current) use of inhaled steroids - Metabolic encephalopathy - Unspecified mood [affective] disorder - Fall (on) (from) unspecified stairs and steps, initial encounter - Unspecified Escherichia coli [E. coli] as the cause of diseases classified elsewhere - Unspecified fracture of second lumbar vertebra, initial encounter for closed fracture - Essential (primary) hypertension - Chronic pain syndrome - Sedative, hypnotic or anxiolytic dependence, uncomplicated - Allergy status to other drugs, medicaments and biological substances status - Opioid dependence, uncomplicated - Other termite helper (current) drug therapy - Gastro-esophageal reflux disease without esophagitis - Hypo-osmolality and hyponatremia - Malignant neoplasm of unspecified part of unspecified bronchus or lung [facility] DIAGNOSES: - Urinary [...] fatigue - Chronic obstructive pulmonary disease, unspecified [email or web address]
[2018-11-05] MEDS ORDERED: KEPPRA500 MG PO (20:16)
[2018-11-06] MEDS ORDERED: ATIVAN0.5 MG PO (15:10)
== END 2018-11-05 20:58 | disposition home or self-care (01) ==
LOC: ED 16:55
DX: G40.909 Epilepsy, unspecified, not intractable, without status epilepticus (principal); Z86.19 Personal history of other infectious and parasitic diseases; Z85.038 Personal history of other malignant neoplasm of large intestine; Z90.49 Acquired absence of other specified parts of digestive tract; Z90.710 Acquired absence of both cervix and uterus; Z91.013 Allergy to seafood; Z88.0 Allergy status to penicillin; Z91.048 Other nonmedicinal substance allergy status; Z79.899 Other long term (current) drug therapy
CPT/HCPCS: 80053; 81001; 85025; 96361; 96374; 96375; 99284-25; J1953; J2060; J7040; J7060

== ENCOUNTER 2018-11-06 08:21 | Emergency (ER) | payer MEDICARE, OTHER ==
[~2018-11-06] VITALS: Ht 157.5 cm; Wt 71.5 kg
[~2018-11-06 08:21] MED LIST changes: +KEPPRA500 MG PO
--- OUTSIDE RECORDS SUMMARY | 2018-11-06 13:26 | XMS ---
PreManage Notification: MARY MURRY Security Patient Portal Concierge Events No recent Security Events currently on file CRITERIA MET - PDMP CARE PROVIDERS Wayne Shultz Internal Medicine: Pulmonary Disease 12/10/2017-Current PHONE: Unknown [facility] Primary Care Current PHONE: Unknown Grace has no Care Guidelines for this patient. Care History Medical/Surgical 10/31/2018 [facility] - Patient is currently established with [facility]. If patient is seen in the ED during business hours. Please contact [facility] at [facility]. Care Recommendation: This patient has had 5 [...] COUNT (12 MO.) 1 Elissa Arguello M.C. 5 YOEL Ardon TOTAL 6 NOTE: Visits indicate total known visits. 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
[2018-11-06] MEDS ORDERED: ATIVAN0.5 MG PO (15:10)
== END 2018-11-06 16:00 | disposition home or self-care (01) ==
LOC: ED 08:21
DX: R41.0 Disorientation, unspecified (principal); C34.90 Malignant neoplasm of unspecified part of unspecified bronchus or lung; G40.909 Epilepsy, unspecified, not intractable, without status epilepticus; Z86.19 Personal history of other infectious and parasitic diseases; Z90.49 Acquired absence of other specified parts of digestive tract; Z90.710 Acquired absence of both cervix and uterus; Z91.013 Allergy to seafood; Z88.0 Allergy status to penicillin; Z91.048 Other nonmedicinal substance allergy status; Z91.09 Other allergy status, other than to drugs and biological substances; Z88.8 Allergy status to other drugs, medicaments and biological substances; Z79.899 Other long term (current) drug therapy
CPT/HCPCS: 62270; 70450; 71045; 80053; 81001; 82140; 82945; 83605; 84157; 85025; 85032; 89051; 99152; 99153; 99284-25; G0480; J2060; J2405